=== PATIENT | male | born 1965 | race Caucasian/White ===

== ENCOUNTER 2025-01-28 22:17 | Emergency (ER) | payer OTHER, BC ==
[~2025-01-28] VITALS: Ht 182.9 cm; Wt 109.5 kg
[2025-01-28] MEDS ORDERED: TETRACAINE HCL 0.5% 4 ML BTL OD ONE (22:45)
[2025-01-28] MEDS ORDERED: MAXITROL EYE DRO5 ML OPTH (23:04)
[2025-01-28] MEDS ORDERED: NEOMYCIN/POLYMYXIN/DEXAMETH OPTH SUSPENSION BOTTLE OD ONE (23:15)
[2025-01-28 23:23] VITALS: BP 132/91
[2025-01-28] MEDS ORDERED: ACETAMINOPHEN 500 MG TAB PO ONE (23:30)
== END 2025-01-28 23:23 | disposition home or self-care (01) ==
LOC: ED 22:17
DX: S05.31XA Ocular laceration without prolapse or loss of intraocular tissue, right eye, initial encounter (principal); H11.31 Conjunctival hemorrhage, right eye; E03.9 Hypothyroidism, unspecified; W22.8XXA Striking against or struck by other objects, initial encounter
CPT/HCPCS: 99283; A9270